=== PATIENT | male | born 1940 | race Caucasian/White ===

== ENCOUNTER 2017-04-23 15:15 | Emergency (ER) | payer MEDICARE ==
[~2017-04-23] VITALS: Ht 180.3 cm; Wt 94.3 kg
[~2017-04-23 15:15] MED LIST: ALPHA LIPOIC A200 MG PO; ASPIRIN EC81 MG PO; ATORVASTATIN CA40 MG PO; CINNAMON PO; CO Q-10200 MG PO; DIOVAN HCT 1601 EACH PO; DIOVAN160 MG PO; FISH OIL PO; GABAPENTIN100 MG PO; HYDROCHLOROTHIA25 MG; JOINT ADVANTAGE GOLD PO; L-ARGININE1000 MG PO; METFORMIN HCL1000 MG PO; OCUVITE TABLET1 EAC1 PO; VITAMIN B12 PO; VITAMIN C500 MG PO; VITAMIN D32000 UNIT PO; VITAMIN E400 UNIT PO
[2017-04-23] MEDS ORDERED: ACETAMINOPHEN 325 MG TAB PO STA (17:03)
[2017-04-23 17:12] LABS: BASOPHILS % 0.2 % (0.0-1.0); EOSINOPHILS % 0.2 % (0.0-6.0); HEMATOCRIT 40.4 % (38.2-49.6); HEMOGLOBIN 13.4 g/dL (14.0-18.0); LYMPHOCYTES # (AUTO) 0.5 (1.0-3.2); MEAN CORPUSCULAR HEMOGLOBIN 28.2 pg (28-32); MEAN CORPUSCULAR HGB CONC 33.2 g/dL (31-35); MEAN CORPUSCULAR VOLUME 85.1 fL (81-99); MONOCYTES # (AUTO) 0.8 (0.2-0.8); MONOCYTES % 9.2 % (4.4-11.3); NEUTROPHILS # (AUTO) 7.7 (2.1-6.9); PLATELET COUNT 209 x10e3/uL (140-360); RED BLOOD COUNT 4.75 x10e6/uL (4.3-5.7); RED CELL DISTRIBUTION WIDTH 13.4 % (11.7-14.4)
[2017-04-23 17:14] LABS: BILIRUBIN,URINE NEGATIVE (NEGATIVE); CLARITY,URINE CLEAR (CLEAR); COLOR,URINE YELLOW (YELLOW); KETONES,URINE 1+ (NEGATIVE); LEUKOCYTE ESTERASE ,URINE NEGATIVE (NEGATIVE); NITRITE,URINE NEGATIVE (NEGATIVE); PROTEIN,URINE DIPSTICK NEGATIVE (NEGATIVE); URINE UROBILINOGEN 0.2 mg/dL (0.2 - 1)
[2017-04-23 17:24] LABS: ALANINE AMINOTRANSFERASE 33 IU/L (0-55); ALBUMIN 3.9 g/dL (3.5-5.0); ALBUMIN/GLOBULIN RATIO 1.1 (0.8-2.0); ALKALINE PHOSPHATASE 88 IU/L (40-150); ANION GAP 17.2 mmol/L (8-16); BLOOD UREA NITROGEN 23 mg/dL (7-26); BUN/CREATININE RATIO 21 (6-25); CALCIUM 9.2 mg/dL (8.4-10.2); CARBON DIOXIDE 26 mmol/L (22-29); CHLORIDE 100 mmol/L (98-107); CREATININE, SERUM 1.11 mg/dL (0.72-1.25); EST GLOMERULAR FILTRATION RATE > 60 ML/MIN (60-); GLUCOSE 164 mg/dL (74-118); POTASSIUM 4.2 mmol/L (3.5-5.1); SODIUM 139 mmol/L (136-145)
--- NOTE | 2017-04-23 17:30 | Diagnostic Imaging Report ---
PROCEDURE: Frontal and lateral views of the chest. COMPARISON: Chest radiograph 08/15/2016. INDICATIONS: PNEUMONIA FINDINGS: Lines/tubes: None. Lungs: The lungs are moderately inflated and clear. There is no evidence of pneumonia or pulmonary edema. Pleura: There is no pleural effusion or pneumothorax. Heart and mediastinum: The heart and the mediastinum are normal. Bones: No acute bony abnormality. Upper abdomen: No free air under the diaphragm. IMPRESSION: No acute cardiopulmonary disease. Dictated by: Bladimir Villeda M.D. on 04/23/2017 at 17:38 Electronically approved by: Bladimir iVlleda M.D. on 04/23/2017 at 17:38
[2017-04-23 17:31] LABS: MUCUS,URINE MODERATE (RARE); RBC,URINE 0-5 /HPF (0-5); WBC,URINE (MAN) 0-5 /HPF (0-5)
[2017-04-24] MEDS ORDERED: ALBUTEROL SULF 0.083% NEB SOLN 3 ML NEB NEB STA (00:06)
[2017-04-24] MEDS ORDERED: IPRATROPIUM BROMIDE 0.02% 2.5 ML NEB NEB ONE (00:15)
== END 2017-04-24 00:58 | disposition home or self-care (01) ==
LOC: ER 15:15
DX: R50.9 Fever, unspecified (principal); R05 Cough; J11.1 Influenza due to unidentified influenza virus with other respiratory manifestations; I10 Essential (primary) hypertension; E11.9 Type 2 diabetes mellitus without complications; Z85.46 Personal history of malignant neoplasm of prostate
CPT/HCPCS: 36415; 71020; 80053; 81001; 83605; 85025; 87040; 87086; 87400; 94640; 99284

== ENCOUNTER → 2020-11-03 | Outpatient (CLI) | payer MEDICARE ==
[~2020-11-03] MED LIST changes: +REGADENOSON 0.4 MG/5 ML SYR IV ONE
== END ==
LOC: NM 09:05
PROVIDERS: ATTEND Internal Medicine Cardiovascular Disease
DX: R07.9 Chest pain, unspecified (principal)
CPT/HCPCS: 78452; 93017; A9502; J2785

== ENCOUNTER 2023-03-19 05:26 | Observation (INO) | payer MEDICARE ==
[2023-03-18 10:42] LABS: BASOPHILS # (AUTO) 0.1 (0.0-0.1); BASOPHILS % 0.7 % (0.0-1.0); EOSINOPHILS # (AUTO) 0.6 (0.0-0.4); EOSINOPHILS % 9.1 % (0.0-6.0); HEMATOCRIT 35.3 % (38.2-49.6); HEMOGLOBIN 11.2 g/dL (14.0-18.0); LYMPHOCYTES # (AUTO) 1.6 (1.0-3.2); MEAN CORPUSCULAR HEMOGLOBIN 28.7 pg (28-32); MEAN CORPUSCULAR HGB CONC 31.7 g/dL (31-35); MEAN CORPUSCULAR VOLUME 90.5 fL (81-99); MONOCYTES # (AUTO) 0.6 (0.2-0.8); MONOCYTES % 8.2 % (4.4-11.3); NEUTROPHILS # (AUTO) 4.1 (2.1-6.9); NEUTROPHILS % 58.9 % (38.7-80.0); PLATELET COUNT 230 x10e3/uL (140-360); RED CELL DISTRIBUTION WIDTH 13.5 % (11.7-14.4); WHITE BLOOD COUNT 6.95 x10e3/uL (4.8-10.8)
[2023-03-18 10:52] LABS: ANION GAP 16.3 mmol/L (8-16); CALCIUM 9.4 mg/dL (8.4-10.2); CREATININE, SERUM 2.14 mg/dL (0.72-1.25); POTASSIUM 5.3 mmol/L (3.5-5.1)
[~2023-03-19 05:26] MED LIST changes: +BILBERRY80 MG PO; +ISOSORBIDE MONO30 MG PO; +KRILL OIL500 MG PO; +METOPROLOL SUCC50 MG PO; +MULTI-VITAMIN1 EACH PO; -REGADENOSON 0.4 MG/5 ML SYR IV ONE; +VALSARTAN-HCTZ1 EAC1 PO; +VITAMIN B-1100 M1 PO; +VITAMIN B122500 MCG PO; +VITAMIN D350 MCG PO; +[UNRECOGNIZED DRUG - OTHER] PO
[2023-03-19] MEDS ORDERED: DEXAMETHASONE SOD PHOS 10 MG/1 ML VIAL ONE (05:45)
[2023-03-19] MEDS ORDERED: CELECOXIB 200 MG CAP ONE (05:45)
[2023-03-19] MEDS ORDERED: GABAPENTIN 300 MG CAP ONE (05:46)
[2023-03-19] MEDS ORDERED: LACTATED RINGER'S 1,000 ML ONE (05:46)
[2023-03-19] MEDS ORDERED: CEFAZOLIN SODIUM 2 GM ONE (05:46)
[2023-03-19] MEDS ORDERED: TRANEXAMIC ACID 20 ML ONE (06:35)
[2023-03-19] MEDS ORDERED: SODIUM CHLORIDE 0.9% 500ML 500 ML ONE (06:35)
[2023-03-19] MEDS ORDERED: Vancomycin IV 1,000 MG ONE (06:35)
[2023-03-19] MEDS ORDERED: ROPIVACAINE 246.25 MG, EPINEPHRINE HCL 1:1000 1ML 0.5 MG, CLONIDINE HCL 0.08 MG, KETORO... INJ ONE ×5 (08:00)
[2023-03-19] MEDS ORDERED: SODIUM CHLORIDE 0.9% 1000ML 1,000 ML IV SCH (08:45)
[2023-03-19] MEDS ORDERED: HYDROCODONE/APAP 7.5MG-325MG 1 EA TAB PO PRN (08:45)
[2023-03-19] MEDS ORDERED: ONDANSETRON HCL INJ 2MG/ML 2ML 2 MG/ML VIAL IV PRN (08:45)
[2023-03-19] MEDS ORDERED: DIPHENHYDRAMINE HCL INJ 50 MG/ML VIAL IV PRN (08:45)
[2023-03-19] MEDS ORDERED: DOCUSATE SODIUM 100 MG CAP PO PRN (08:45)
[2023-03-19] MEDS ORDERED: HYDROCODONE/APAP 5MG-325MG TAB PO PRN (08:45)
[2023-03-19 08:54] VITALS: TEMP 98.3
[2023-03-19] MEDS ORDERED: CELECOXIB 100 MG CAP PO SCH (09:00)
[2023-03-19] MEDS ORDERED: ASPIRIN 325 MG TAB PO SCH (09:00)
[2023-03-19] MEDS: FENTANYL CITRATE/PF 100MCG/2 ML INJ ONE ×2 (09:08→09:15)
[2023-03-19] MEDS ORDERED: ACETAMINOPHEN 1000 MG/100 ML 100 ML IV ONE (09:57)
[2023-03-19] MEDS ORDERED: ACETAMINOPHEN 1000 MG/100 ML IV ONE (10:00)
[2023-03-19 11:15] VITALS: BP 157/66; PULSE 63; RESP 18; O2SAT 99
[2023-03-19] MEDS ORDERED: ASPIRIN81 MG PO (13:36)
[2023-03-19] MEDS ORDERED: SEVOFLURANE INHAL SOLN 250 ML PEN BTL ONE (13:37)
[2023-03-19] MEDS ORDERED: EPHEDRINE SULFATE INJ 50 MG/ML VIAL ONE (13:37)
[2023-03-19] MEDS ORDERED: PROPOFOL IV EMULSION 10 MG/ML 20 ML VIAL ONE (13:37)
[2023-03-19] MEDS ORDERED: DEXAMETHASONE SOD PHOS INJ 4 MG/ML SDV ONE (13:37)
[2023-03-19] MEDS ORDERED: LIDOCAINE HCL 2% LOCAL INJ 5 ML SDV VIAL INJ ONE (13:37)
[2023-03-19] MEDS ORDERED: PHENYLEPHRINE HCL 1% 10 MG/ML VIAL ONE (13:37)
[2023-03-19] MEDS ORDERED: ONDANSETRON HCL INJ 2MG/ML 2ML 2 MG/ML VIAL ONE (13:37)
[2023-03-20] MEDS ORDERED: ACETAMINOPHEN 1000 MG/100 ML IV PRN (08:45)
== END 2023-03-19 13:00 | disposition home health service (06) ==
LOC: OR 05:26 → PACU V 08:42
PROVIDERS: ADMIT Specialist; ATTEND Specialist
DX: M17.11 Unilateral primary osteoarthritis, right knee (principal); E11.9 Type 2 diabetes mellitus without complications; I10 Essential (primary) hypertension; E78.5 Hyperlipidemia, unspecified; Z01.810 Encounter for preprocedural cardiovascular examination; Z01.812 Encounter for preprocedural laboratory examination; Z01.818 Encounter for other preprocedural examination; Z79.82 Long term (current) use of aspirin; Z79.84 Long term (current) use of oral hypoglycemic drugs; Z79.899 Other long term (current) drug therapy; Z87.891 Personal history of nicotine dependence
CPT/HCPCS: 27447; 36415 ×2; 71046; 73560; 80048; 82948; 85025; 86850; 86900; 93005; 97116 ×2; 97161; C1713 ×3; C1776; G0378; J0131; J0171; J1100 ×2; J1885; J2001; J2371; J2405; J2704; J2795; J3010; J3370; J7040; J7121

== ENCOUNTER 2024-02-05 09:07 | Emergency (ER) | payer MEDICARE ==
[~2024-02-05] VITALS: Ht 180.3 cm; Wt 83.9 kg
[~2024-02-05 09:07] MED LIST changes: +ASPIRIN81 MG PO
[2024-02-05] MEDS: LIDOCAINE 4% PATCH TP STA (10:11)
[2024-02-05] MEDS: KETOROLAC TROMETHAMINE 30 MG/ML VIAL IM STA (10:11)
[2024-02-05] MEDS: DEXAMETHASONE 4 MG TAB PO STA (10:11)
[2024-02-05] MEDS ORDERED: NAPROXEN250 MG PO (11:45)
[2024-02-05 11:50] VITALS: PULSE 74; RESP 16; TEMP 98.4
[2024-02-05 12:02] VITALS: BP 163/72; PULSE 74; RESP 16; TEMP 98.6; O2SAT 97
== END 2024-02-05 12:04 | disposition home or self-care (01) ==
LOC: ER 09:15
DX: M54.50 Low back pain, unspecified (principal); X50.1XXA Overexertion from prolonged static or awkward postures, initial encounter; Y92.89 Other specified places as the place of occurrence of the external cause
CPT/HCPCS: 72131; 99282; J1885; J8540